=== PATIENT | male | born 1980 | race Hispanic/Latino ===

== ENCOUNTER 2018-01-08 15:40 | Emergency (ER) | payer BC ==
[2018-01-08 15:45] VITALS: RESP 16; O2SAT 99
--- NOTE | 2018-01-08 16:06 | ED PDOC ---
HPI: Abdomen <Chelo - Last Filed: 01/08/18 17:45> <Lizandro Machado A - Last Filed: 01/08/18 18:29> Chief Complaint (Nursing): Abdominal Pain Additional Complaint(s): 37yo M with PMHx diverticulitis and nephrolithiasis c/o abd pain. LLQ abd pain x1 day, a/w nausea, no. Denies vomiting, fever, diarrhea, dysuria, hematuria. No new food or sick contacts. Seen by GI Dr. Worrell in [facility], [place] abd/pelvis not completed recently PCP: , Dr. Cortez, located in [place] () Supervising Attending Note - Supervising Attending Note The Documented history was done by the: Physician Mill Beam Fitter, Attending Physician The documented physical exam was done by the: Physician Mill Beam Fitter, Attending Physician The documented procedures were done by the: Physician Mill Beam Fitter, Attending Physician - Attestation: I have personally seen and examined this patient.: Yes I have fully participated in the care of the patient.: Yes I have reviewed all pertinent clinical information: Yes <MaryanalucíaDorothyjeniffer A - Last Filed: 01/08/18 18:29> Past Medical History Reviewed: Historical Data, Nursing Documentation, Vital Signs - Medical History PMH: Diverticulitis, Kidney Stones - Surgical History Surgical History: No Surg Hx - Family History Family History: States: Unknown Family Hx - Social History Current smoker - smoking cessation education provided: No Alcohol: None Drugs: Denies <Chelo - Last Filed: 01/08/18 17:45> <Lizandro Machado A - Last Filed: 01/08/18 18:29> Vital Signs: Last Vital Signs Temp 97.3 F L 01/08/18 15:43 Pulse 76 01/08/18 15:43 Resp 16 01/08/18 15:43 BP 139/82 01/08/18 15:43 Pulse Ox 99 01/08/18 17:47 - Home Medications Home Medications: Ambulatory Orders Medication Instructions Recorded Ciprofloxacin HCl [Cipro] 500 mg PO BID #14 tablet 01/08/18 Metronidazole [Flagyl] 500 mg PO BID #14 tablet 01/08/18 - Allergies Allergies/Adverse Reactions: Allergies Allergy/AdvReac Type Severity Reaction Status Date / Time No Known Allergies Allergy Verified 01/08/18 15:43 Review of Systems ROS Statement: Except As Marked, All Systems Reviewed And Found Negative Gastrointestinal: Positive for: Nausea, Abdominal Pain <Tu,Ting - Last Filed: 01/08/18 17:45> Physical Exam - Reviewed Nursing Documentation Reviewed: Yes Vital Signs Reviewed: Yes - Physical Exam Appears: Positive for: Well, Non-toxic Head Exam: Positive for: ATRAUMATIC, NORMAL INSPECTION Skin: Positive for: Warm, Dry ENT: Negative for: Pharyngeal Erythema, Tonsillar Exudate Neck: Positive for: Normal, Painless ROM, Supple Cardiovascular/Chest: Positive for: Regular Rate, Rhythm, Chest Non Tender Respiratory: Positive for: Normal Breath Sounds. Negative for: Decreased Breath Sounds Gastrointestinal/Abdominal: Positive for: Bowel Sounds, Soft, Tenderness (LLQ). Negative for: Mass, Distended, Guarding Back: Positive for: Normal Inspection. Negative for: Vertebral Tenderness Extremity: Positive for: Normal ROM Lymphatic: Negative for: Adenopathy Neurologic/Psych: Positive for: Alert, Oriented <,Ting - Last Filed: 01/08/18 17:45> - Laboratory Results Result Diagrams: 01/08/18 16:15 01/08/18 16:15 - ECG O2 Sat by Pulse Oximetry: 99 <Ting - Last Filed: 01/08/18 17:45> - Laboratory Results Result Diagrams: 01/08/18 16:15 01/08/18 16:15 - Progress Re-evaluation Time: 18:24 Condition: Re-examined, Improved <Lizandro Machado - Last Filed: 01/08/18 18:29> Medical Decision Makin DDx colitis, diverticulitis, pancreatitis, kidney stone VSS, no peritoneal signs urine dip no blood CBC, CMP, lipase Zofran 4mg SL x1 toradol 15mg IV x1 CT abd/pelvis IV cont reassessment 1734 CBC with leukocytosis pt gone to complete CT abd/pelvis IV cont 1745 Abd pain controlled (Tu,Ting) Disposition - Disposition Disposition Time: 17:47 <Tu,Ting - Last Filed: 01/08/18 17:45> - Patient ED Disposition Is Patient to be Admitted: No Doctor Will See Patient In The: Office Counseled Patient/Family Regarding: Studies Performed, Diagnosis, Need For Followup - Disposition Disposition: Routine/Home <Lizandro Machado - Last Filed: 01/08/18 18:29> - Clinical Impression Clinical Impression: Diverticulitis - Disposition Referrals: Leela Sargent MD [Medical Doctor] - Condition: GOOD Additional Instructions: Take your medications as instructed. Follow up with your PCP in 2-3 days. Prescriptions: Ciprofloxacin HCl [Cipro] 500 mg PO BID #14 tablet Metronidazole [Flagyl] 500 mg PO BID #14 tablet Instructions: Diverticulitis (DC)
[2018-01-08 16:38] LABS: BASO # 0.1 K/uL (0.0-0.2); BASO % 0.6 % (0.0-2.0); EOS # 0.1 K/uL (0.0-0.7); HEMOGLOBIN 14.6 g/dL (12.0-18.0); LYMPH # 2.3 K/uL (1.0-4.3); LYMPH % 16.2 % (20.0-40.0); MEAN CELL VOLUME 87.2 fl (80.0-94.0); MEAN CORPUSCULAR HEMOGLOBIN 29.8 pg (27.0-31.0); MEAN CORPUSCULAR HGB CONC 34.2 g/dL (33.0-37.0); MONO # 0.8 K/uL (0.0-0.8); MONO % 5.5 % (0.0-10.0); NEUT % 76.7 % (50.0-75.0); NRBC % 0.1 % (0.0-0.0); RBC 4.9 Mil/uL (4.40-5.90); RED CELL DISTRIBUTION WIDTH 12.7 % (11.5-14.5); WHITE BLOOD COUNT 14.3 K/uL (4.8-10.8)
[2018-01-08 17:03] LABS: ALB/GLOB RATIO 1.6 (1.0-2.1); ALBUMIN 4.5 g/dL (3.5-5.0); ALT/SGPT 35 U/L (21-72); AST/SGOT 24 U/L (17-59); BLOOD UREA NITROGEN 16 mg/dl (9-20); CALCIUM 9.3 mg/dL (8.4-10.2); GFR AFRICAN-AMERICAN > 60; GFR NON-AFRICAN AMERICAN > 60; LIPASE 50 U/L (23-300)
[2018-01-08] MEDS ORDERED: Iohexol 300 100 ML IJ ONE (17:31)
--- NOTE | 2018-01-08 18:17 | CT ---
PROCEDURE: CT Abdomen and Pelvis with contrast HISTORY: LLQ abd pain COMPARISON: Comparison is made to the previous study dated 12/08/2013 TECHNIQUE: Contrast dose: 95 cc Omnipaque 300. Axial and reformatted coronal and sagittal CT images of the abdomen and pelvis were obtained after IV contrast administration. Radiation dose: Total exam DLP = 977.8 mGy-cm. This CT exam was performed using one or more of the following dose reduction techniques: Automated exposure control, adjustment of the mA and/or kV according to patient size, and/or use of iterative reconstruction technique. FINDINGS: LOWER THORAX: Unremarkable. LIVER: Unremarkable. No gross lesion or ductal dilatation. GALLBLADDER AND BILE DUCTS: Unremarkable. PANCREAS: Unremarkable. No gross lesion or ductal dilatation. SPLEEN: Mild splenomegaly is again noted. ADRENALS: Unremarkable. No mass. KIDNEYS AND URETERS: Unremarkable. No hydronephrosis. No solid mass. VASCULATURE: Unremarkable. No aortic aneurysm. BOWEL: Again seen are scattered colonic diverticulosis. There are inflammatory changes surrounding the descending sigmoid junction in the left lower abdomen consistent with acute diverticulitis. There is no evidence of abscess formation or significant free air. There is diverticulum protruding from the distal gastric greater curvature and seen adjacent to the left adrenal gland measures 1.8 centimeter in the transverse diameter and 2.1 centimeter in the AP diameter appears larger compared to the previous study. APPENDIX: Normal appendix. PERITONEUM: Unremarkable. No free fluid. No free air. LYMPH NODES: Unremarkable. No enlarged lymph nodes. BLADDER: Unremarkable. REPRODUCTIVE: Unremarkable. BONES: No acute fracture. OTHER FINDINGS: None. IMPRESSION: Findings suggestive of acute diverticulitis at the junction of the descending and sigmoid colon in the left lower abdomen. No evidence of abscess formation or free air. Otherwise no evidence of acute pathology in the abdomen and pelvis. Incidental findings as described above.
[2018-01-08] MEDS ORDERED: metroNIDAZOLE 500mg/100ml NS 100 ML IVPB STA (18:30)
[2018-01-08] MEDS ORDERED: metroNIDAZOLE 500mg/100ml NS 0 ML IVPB ONE (18:36)
[2018-01-08 18:49] VITALS: BP 128/76; PULSE 74; TEMP 98
[2018-01-08] MEDS ORDERED: Ciprofloxacin 400mg/200ml D5W 400 MG/200 ML BAG IVPB SCH (21:00)
== END 2018-01-08 18:45 | disposition home or self-care (01) ==
LOC: H.ER 15:40
DX: K57.92 Diverticulitis of intestine, part unspecified, without perforation or abscess without bleeding (principal)
CPT/HCPCS: 74177; 80053; 83690; 85025; 96374; 99284; J1885; Q9967